=== PATIENT | female | born 1985 | race Two or more races ===

== ENCOUNTER 2021-10-28 09:15 | Inpatient (IN) | payer OTHER ==
[~2021-10-28] VITALS: Ht 160 cm; Wt 62.1 kg
[2021-10-28] MEDS ORDERED: HEATHER0.35 MG PO (11:16)
[2021-10-28] MEDS ORDERED: ABATRON LIQUID474 ML PO (11:17)
== END 2021-11-05 16:48 | disposition home or self-care (01) | DRG 743 ==
LOC: SURH 11-02 09:15 → O/R 11-04 08:21 → OB/GYN 11-04 08:21 → SURH 11-04 09:15 → OB/GYN 11-04 13:10
PROVIDERS: ADMIT Obstetrics & Gynecology; ATTEND Obstetrics & Gynecology
PROC: 0UT70ZZ Resection of Bilateral Fallopian Tubes, Open Approach (ICD-10-PCS; 2021-11-04)
PROC: 0DNW0ZZ Release Peritoneum, Open Approach (ICD-10-PCS; 2021-11-04)
PROC: 0UT90ZZ Resection of Uterus, Open Approach (ICD-10-PCS; principal; 2021-11-04 13:00)
DX: N80.0 Endometriosis of uterus (principal); N72 Inflammatory disease of cervix uteri; N73.6 Female pelvic peritoneal adhesions (postinfective); Z20.822 Contact with and (suspected) exposure to COVID-19

== ENCOUNTER 2024-04-16 13:03 | Outpatient (CLI) | payer OTHER ==
[~2024-04-16 13:03] MED LIST: ABATRON LIQUID474 ML PO; HEATHER0.35 MG PO
== END 2024-04-16 13:05 | disposition home or self-care (01) ==
LOC: SONOGRAMA 13:03
PROVIDERS: ATTEND Pathology Anatomic Pathology & Clinical Pathology
DX: E04.2 Nontoxic multinodular goiter (principal); D34 Benign neoplasm of thyroid gland